=== PATIENT | female | born 1990 | race Hispanic/Latino ===

== ENCOUNTER 2021-04-22 18:40 | Emergency (ER) | payer OTHER ==
[2021-04-22 19:45] LABS: #Eosinphils 0.1 10x3/uL (0.0-0.5); #Monocytes 0.7 10x3/uL (0.0-1.1); #Neutrophils 9.3 10x3/uL (1.5-8.4); %Basophils 0.3 % (0.0-2.0); %Eosinophils 0.6 % (0.0-6.0); %Lymphocytes 13.3 % (18.0-47.0); %Monocytes 5.7 % (0.0-10.0); %Neutrophils 79.8 % (40.0-75.0); Hemoglobin 11.3 g/dL (12.0-15.5); Mean Corpuscular HGB CONC 32.9 g/dL (32.0-36.0); Mean Corpuscular Hemoglobin 26.6 pg (27.0-33.0); Mean Corpuscular Volume 80.7 fl (81.6-98.3); Mean Platelet Volume 9.2 fl (7.4-10.4); Platelet Count 364 10x3/uL (150-450); RBC Distribution Width 13.6 % (11.5-14.5); Red Blood Cell (RBC) Count 4.25 10x6/uL (3.90-5.03); White Blood Cell (WBC) Count 11.6 10x3/uL (3.5-10.5)
[2021-04-22 19:54] LABS: BHCG - Serum Negative (NEGATIVE); Pregs Control Background? CLEAR/WHITE (CLR/WHITE); Pregs Control Bar Appear? YES (CONTROL BAR)
[2021-04-22 20:02] LABS: ALT (SGPT) 26 U/L (8-55); AST (SGOT) 18 U/L (5-34); Albumin 3.9 g/dL (3.5-5.0); Alkaline Phosphatase 140 U/L (40-110); Anion Gap 11 mmol/L (10-20); BUN (Urea Nitrogen) 15 mg/dL (7.0-18.7); Bilirubin, Total 0.1 mg/dL (0.2-1.2); Calc. Creatinine Clearance 0 mL/min (70-130); Calcium 8.1 mg/dL (7.8-10.44); Carbon Dioxide 25 mmol/L (22-29); Chloride 106 mmol/L (98-107); Globulin 3.3 g/dL (2.4-3.5); Glucose 104 mg/dL (70-105); Potassium 3.6 mmol/L (3.5-5.1); Protein, Total 7.2 g/dL (6.0-8.3); Sodium 138 mmol/L (136-145)
[2021-04-22 20:19] LABS: Thyroid Stimulating Hormone 6.2798 uIU/mL (0.35-4.94)
== END 2021-04-22 22:56 | disposition left against medical advice (07) ==
LOC: CSHERS 18:40
DX: R55 Syncope and collapse (principal); R00.0 Tachycardia, unspecified; E78.5 Hyperlipidemia, unspecified; D64.9 Anemia, unspecified
CPT/HCPCS: 36415; 71045; 80053; 84439; 84443; 84703; 85025; 93005

== ENCOUNTER 2024-03-08 04:53 | Inpatient (IN) | payer OTHER ==
[2024-03-08] MEDS ORDERED: Misoprostol 200 MCG TAB ONE (05:07)
[2024-03-08] MEDS ORDERED: Oxytocin 30 units/NS 500 ML 500 ML ONE (05:07)
[2024-03-08] MEDS ORDERED: Promethazine HCl 25 MG/ML VIAL IM PRN (05:10)
[2024-03-08] MEDS ORDERED: Lidocaine 1% (PF) 30 ML VIAL SC PRN (05:10)
[2024-03-08] MEDS: Oxytocin 30 units/NS 500 ML 500 ML IV SCH (05:15)
[2024-03-08 05:28] LABS: Hematocrit 23.5 % (34.9-44.5); Hemoglobin 6.3 g/dL (12.0-15.5); Mean Corpuscular HGB CONC 26.8 g/dL (32.0-36.0); Mean Corpuscular Hemoglobin 18.1 pg (27.0-33.0); Mean Corpuscular Volume 67.3 fL (81.6-98.3); Mean Platelet Volume 10.1 fL (7.4-10.4); Platelet Count 331 10x3/uL (150-450); RBC Distribution Width 25.3 % (11.5-14.5); Red Blood Cell (RBC) Count 3.49 10x6/uL (3.90-5.03); White Blood Cell (WBC) Count 9.9 10x3/uL (3.5-10.5)
[2024-03-08] MEDS: Carboprost 250 MCG/ML AMP ONE (05:33)
[2024-03-08] MEDS: Labetalol HCl 100 MG/20 ML VIAL SLOW IVP PRN ×3 (05:36→06:42)
[2024-03-08 05:37] LABS: Analyzer IN Cardio CS NICU; Critical Notified By: clumpkins rt; Critical Notified Whom: Sharon PA; RapidComm Collect By nur.arp
[2024-03-08 05:39] LABS: Analyzer IN Cardio CS NICU; Critical Notified By: clumpkins rt; Critical Notified Whom: Sharon PA; RapidComm Collect By nur.arp; pH (Cord, venous) 7.099 (7.250-7.350)
[2024-03-08] MEDS ORDERED: Calcium Gluc 4.6 MEQ/10 ML (100 MG/ML) SLOW IVP PRN (05:40)
[2024-03-08] MEDS ORDERED: Lorazepam 2 MG/ML VIAL SLOW IVP PRN (05:40)
[2024-03-08] MEDS: Labetalol HCl 100 MG/20 ML VIAL ONE (05:43)
[2024-03-08] MEDS: Magnesium Sulfate 20 gm/500 ml 20 GM/500 ML BAG ONE (05:43)
[2024-03-08 05:45] LABS: Amphetamine Not Detected (NotDetected); Barbiturates Screen Not Detected (NotDetected); Benzodiazepine Screen Not Detected (NotDetected); Cocaine Metabolite Screen Not Detected (NotDetected); Methadone Not Detected (NotDetected); Methamphetamine Not Detected (NotDetected); Opiate Screen Not Detected (NotDetected); Oxycodone Screen Not Detected (NotDetected); Phencyclidine (PCP) Not Detected (NotDetected); THC/Cannabinoid Screen Not Detected (NotDetected); Tricyclic Screen Not Detected (NotDetected)
[2024-03-08 05:54] LABS: HBsAg Index 0.18 S/CO (0-0.99); Hep B Surf Ag - L&D Non-Reactive S/CO (NonReactive); Syphilis Antibody Nonreactive (Nonreactive); Syphilis Antibody Index 0.04 S/CO (<1.00 Non-Reactive)
[2024-03-08] MEDS ORDERED: Milk Of Magnesia 30 ML UDCUP PO PRN (05:56)
[2024-03-08] MEDS ORDERED: Boostrix 0.5 ML (Tdap) VIAL (>/=7 yrs of age) IM ONE (05:56)
[2024-03-08] MEDS ORDERED: Lanolin Ointment 7 GM TUBE TOP PRN (05:56)
[2024-03-08] MEDS ORDERED: Preparation H Ointment 28 GM TUBE PR PRN (05:56)
[2024-03-08] MEDS ORDERED: Bisacodyl 10 MG SUPP PR PRN (05:56)
[2024-03-08] MEDS ORDERED: Benzocaine-Menthol 82.5 ML CAN TOP PRN (05:56)
[2024-03-08] MEDS ORDERED: diphenhydrAMINE 25 MG CAP PO PRN (05:56)
[2024-03-08] MEDS: Tranexamic Acid 1,000 MG/10 ML VIAL ONE (06:00)
[2024-03-08] MEDS: Methylergonovine 0.2 MG/ML VIAL ONE (06:00)
[2024-03-08] MEDS: Lidocaine 1% (PF) 30 ML VIAL ONE (06:00)
[2024-03-08] MEDS: Ondansetron PF 4 MG/2 ML Vial IVP PRN (06:11)
[2024-03-08] MEDS: Diphenoxylate HCl/Atropine Tablet PO SCH (06:13)
[2024-03-08] MEDS: Diphenoxylate HCl/Atropine Tablet PO PRN (06:14)
[2024-03-08 06:47] VITALS: BP 172/104
[2024-03-08] MEDS: NIFEdipine XL 60 MG ER.TAB PO SCH (07:10)
[2024-03-08] MEDS: Ferrous Sulfate 325 MG TAB PO SCH (08:54)
[2024-03-08] MEDS: Docusate 100 MG CAP PO SCH (09:10)
[2024-03-08] MEDS: Ibuprofen 800 MG TAB PO SCH (09:10)
[2024-03-08] MEDS: Prenatal Vitamin 1 TAB PO SCH (09:10)
[2024-03-08 09:47] LABS: Creatinine, Urine 37.98 mg/dL (47-110)
[2024-03-08] MEDS: hydrALAZINE 20 MG/ML VIAL SLOW IVP PRN (10:04)
[2024-03-08 10:24] LABS: ALT (SGPT) 13 U/L (8-55); AST (SGOT) 33 U/L (5-34); Albumin 1.5 g/dL (3.5-5.0); Alkaline Phosphatase 471 U/L (40-110); Anion Gap 14 mmol/L (10-20); BUN (Urea Nitrogen) 23 mg/dL (7.0-18.7); Bilirubin, Total 0.9 mg/dL (0.2-1.2); Calc. Creatinine Clearance 0 mL/min (70-130); Calcium 7.7 mg/dL (7.8-10.44); Carbon Dioxide 10 mmol/L (22-29); Chloride 111 mmol/L (98-107); Estimated GFR 58; Globulin 4.7 g/dL (2.4-3.5); Glucose 97 mg/dL (70-105); Potassium 5.9 mmol/L (3.5-5.1); Protein, Total 6.2 g/dL (6.0-8.3); Sodium 129 mmol/L (136-145)
[2024-03-08 10:46] LABS: Free T4 (Free Thyroxine) 0.72 ng/dL (0.70-1.48); HIV (1/2) Antibody/Antigen Non-Reactive (NonReactive); HIV 1/2 INDEX 0.06 S/CO (<1.00); Thyroid Stimulating Hormone 5.6334 uIU/mL (0.35-4.94)
[2024-03-08 11:25] LABS: Critical Call Chemistry AT NUR.DL7 READ BACK RESULT AT 1125; Magnesium 6.4 mg/dL (1.6-2.6)
[2024-03-08 12:54] LABS: Hep C IgG Ab Reflex HepC Qnt S/CO (NonReactive)
[2024-03-08 12:55] LABS: HBSAB Concentration Less than 8.00 mIU/mL; Hep B Surf AB NONREACTIVE (NonReactive)
[2024-03-08] MEDS: Magnesium Sulfate 20 gm/500 ml 20 GM/500 ML BAG IVPB SCH (13:54)
[2024-03-08 14:25] LABS: Hematocrit 30.6 % (34.9-44.5); Hemoglobin 9.2 g/dL (12.0-15.5)
[2024-03-08 17:20] LABS: ALT (SGPT) 12 U/L (8-55); AST (SGOT) 31 U/L (5-34); Albumin 1.3 g/dL (3.5-5.0); Alkaline Phosphatase 423 U/L (40-110); Anion Gap 15 mmol/L (10-20); BUN (Urea Nitrogen) 24 mg/dL (7.0-18.7); Bilirubin, Total 0.7 mg/dL (0.2-1.2); Calc. Creatinine Clearance 0 mL/min (70-130); Calcium 7.1 mg/dL (7.8-10.44); Chloride 111 mmol/L (98-107); Estimated GFR 50; Globulin 3.8 g/dL (2.4-3.5); Glucose 193 mg/dL (70-105); Potassium 4.6 mmol/L (3.5-5.1); Protein, Total 5.1 g/dL (6.0-8.3); Sodium 130 mmol/L (136-145)
[2024-03-08 17:23] LABS: Carbon Dioxide 9 mmol/L (22-29); Critical Call Chemistry NUR.DL7 AT 1723; Magnesium Greater than 9.5 mg/dL (1.6-2.6)
[2024-03-08] MEDS: Albumin 25% 25 GM (100 mL) BOT IVPB SCH (17:52)
[2024-03-08 18:41] LABS: #Basophils 0.05 10x3/uL (0.0-0.2); #Monocytes 0.73 10x3/uL (0.0-1.1); #Neutrophils 10.65 10x3/uL (1.5-8.4); %Basophils 0.4 % (0.0-2.0); %Lymphocytes 14.1 % (18.0-47.0); %Monocytes 5.4 % (0.0-10.0); %Neutrophils 79.1 % (40.0-75.0); Hematocrit 26.4 % (34.9-44.5); Hemoglobin 8.2 g/dL (12.0-15.5); Mean Corpuscular HGB CONC 31.1 g/dL (32.0-36.0); Mean Corpuscular Volume 70.8 fL (81.6-98.3); Mean Platelet Volume 10.2 fL (7.4-10.4); Platelet Count 298 10x3/uL (150-450); RBC Distribution Width 24.1 % (11.5-14.5); Red Blood Cell (RBC) Count 3.73 10x6/uL (3.90-5.03); White Blood Cell (WBC) Count 13.5 10x3/uL (3.5-10.5)
[2024-03-08 19:19] LABS: Anisocytosis MODERATE=16-30 cells (100X) (0-5/hpf); Burr Cells SLIGHT = 2-5 cells (100X) (0-1/hpf); Hypochromia MODERATE=16-30 cells (100X) (0-5/hpf); Microcytosis MODERATE=15-30 cells (100X) (0-5/hpf); Polychromasia SLIGHT = 2-3 cells (100X) (0-2/hpf)
[2024-03-08 19:20] LABS: Large Platelets SLIGHT (None Seen); Platelet Adequacy Comment Appears Adequate
[2024-03-08] MEDS ORDERED: Acetaminophen 500 MG TAB PO PRN (20:03)
[2024-03-08] MEDS ORDERED: levETIRAcetam 500 MG (5 mL) VIAL SLOW IVP PRN (20:04)
[2024-03-08] MEDS ORDERED: Diazepam 2.5 MG GEL PR PRN (20:05)
[2024-03-08 20:24] VITALS: BMI 29.2
[2024-03-08 20:32] LABS: INR-International Normal Ratio 0.9; PTT 30.8 sec (22.0-33.0); Prothrombin Time 10.1 sec (9.5-12.1)
[2024-03-08 20:35] LABS: ALT (SGPT) 10 U/L (8-55); AST (SGOT) 27 U/L (5-34); Albumin 1.9 g/dL (3.5-5.0); Alkaline Phosphatase 373 U/L (40-110); Anion Gap 14 mmol/L (10-20); BUN (Urea Nitrogen) 24 mg/dL (7.0-18.7); Bilirubin, Total 0.7 mg/dL (0.2-1.2); Calc. Creatinine Clearance 62 mL/min (70-130); Calcium 7.6 mg/dL (7.8-10.44); Carbon Dioxide 11 mmol/L (22-29); Chloride 108 mmol/L (98-107); Estimated GFR 47; Glucose 141 mg/dL (70-105); Potassium 5.2 mmol/L (3.5-5.1); Protein, Total 5.9 g/dL (6.0-8.3); Sodium 128 mmol/L (136-145)
[2024-03-08 21:22] LABS: Critical Call Chemistry NUR.JG2@2120/JG2WITHREADBACK; Magnesium 9.2 mg/dL (1.6-2.6)
[2024-03-08 21:30] LABS: Phosphorus 5.1 mg/dL (2.3-4.7)
[2024-03-08 21:32] LABS: Creatinine, Urine 102.48 mg/dL (47-110)
[2024-03-08] MEDS: Furosemide 20 MG (2 mL) VIAL SLOW IVP SCH (22:14)
[2024-03-08 22:45] LABS: Troponin I 0.144 ng/mL (< 0.028)
[2024-03-08 23:55] LABS: Troponin I 0.138 ng/mL (< 0.028)
[2024-03-09] MEDS ORDERED: Lactated Ringer's 500 ML IV SCH (00:30)
[2024-03-09 00:39] LABS: #Basophils 0.03 10x3/uL (0.0-0.2); #Eosinophils 0.01 10x3/uL (0.0-0.5); #Neutrophils 9.45 10x3/uL (1.5-8.4); %Basophils 0.2 % (0.0-2.0); %Eosinophils 0.1 % (0.0-6.0); %Lymphocytes 19.6 % (18.0-47.0); %Monocytes 5.5 % (0.0-10.0); %Neutrophils 73.8 % (40.0-75.0); Hematocrit 26.1 % (34.9-44.5); Hemoglobin 7.9 g/dL (12.0-15.5); Mean Corpuscular HGB CONC 30.3 g/dL (32.0-36.0); Mean Corpuscular Hemoglobin 21.1 pg (27.0-33.0); Mean Corpuscular Volume 69.6 fL (81.6-98.3); RBC Distribution Width 24.2 % (11.5-14.5); Red Blood Cell (RBC) Count 3.75 10x6/uL (3.90-5.03); White Blood Cell (WBC) Count 12.8 10x3/uL (3.5-10.5)
[2024-03-09 00:41] LABS: Mean Platelet Volume 10.2 fL (7.4-10.4); Platelet Count 301 10x3/uL (150-450)
[2024-03-09 00:52] LABS: ALT (SGPT) 11 U/L (8-55); AST (SGOT) 27 U/L (5-34); Albumin 1.9 g/dL (3.5-5.0); Alkaline Phosphatase 353 U/L (40-110); Anion Gap 14 mmol/L (10-20); BUN (Urea Nitrogen) 25 mg/dL (7.0-18.7); Bilirubin, Total 0.7 mg/dL (0.2-1.2); Calc. Creatinine Clearance 61 mL/min (70-130); Calcium 7.6 mg/dL (7.8-10.44); Carbon Dioxide 11 mmol/L (22-29); Chloride 109 mmol/L (98-107); Estimated GFR 47; Globulin 3.8 g/dL (2.4-3.5); Glucose 103 mg/dL (70-105); Potassium 5.4 mmol/L (3.5-5.1); Protein, Total 5.7 g/dL (6.0-8.3); Sodium 129 mmol/L (136-145)
[2024-03-09 00:54] LABS: Critical Call Chemistry NUR.SJG2@0053/JG2/WITHREADBACK; Magnesium 8.1 mg/dL (1.6-2.6)
[2024-03-09] MEDS: Albumin 25% 25 GM (100 mL) BOT IVPB SCH (00:57)
[2024-03-09 06:05] LABS: Chlamydia by PCR, Vaginal Swab Not Detected (NotDetected); GC by PCR, Vaginal Swab Not Detected (NotDetected); Tric.vaginalis PCR,Vaginal Sw Not Detected (NotDetected)
[2024-03-09] MEDS ORDERED: NIFEdipine XL 60 MG ER.TAB PO SCH (09:00)
[2024-03-09 12:20] LABS: Group B Streptococcus by PCR DETECTED (NotDetected)
[2024-03-12 22:07] LABS: Hep C PCR-Quant HCV Not Detected IU/mL (.)
== END 2024-03-09 01:08 | disposition short-term general hospital (02) | DRG 806 ==
LOC: CSHLD/OP 04:53 → CSHLD 06:01
PROVIDERS: ADMIT Family Medicine; ATTEND Family Medicine
PROC: 10E0XZZ Delivery of Products of Conception, External Approach (ICD-10-PCS; principal; 2024-03-08)
DX: O14.14 Severe pre-eclampsia complicating childbirth (principal); E87.1 Hypo-osmolality and hyponatremia; Z37.0 Single live birth; N17.9 Acute kidney failure, unspecified; O99.02 Anemia complicating childbirth; D64.9 Anemia, unspecified; Z3A.39 39 weeks gestation of pregnancy; Z90.49 Acquired absence of other specified parts of digestive tract; O90.49 Other postpartum acute kidney failure; O90.3 Peripartum cardiomyopathy; E87.5 Hyperkalemia; O99.285 Endocrine, nutritional and metabolic diseases complicating the puerperium
CPT/HCPCS: 36415; 36416; 36430; 51702; 71045; 80053; 80306; 82570; 82728; 82805; 83036; 83605; 83735; 83880; 83930; 83935; 84100; 84156; 84300; 84439; 84443; 84484; 84550; 85025; 85027; 85610; 85730; 86706; 86762; 86780; 86803; 86850; 86900; 86901; 87340; 87389; 87491; 87522; 87591; 87653; 87661; 88307; 93005; 93010; 99285; J0360; J1940; J2210; J2405; J2590; J3475; J3490; P9016; P9047